=== PATIENT | female | born 1970 | race American Indian/Alaskan Native ===

== ENCOUNTER 2017-04-23 06:17 | Day surgery (SDC) | payer OTHER ==
--- NOTE | 2017-04-23 06:53 | CP.SDSHP ---
Same Day Surgery H & P - History Proposed Procedure: Right juan osteotomy of 2nd metatarsal, hammertoe correction of 3rd and 4th digits, rachelle osteotomy of hallux Pre-Op Diagnosis: right foot bunion and hammertoe deformity - Allergies Allergies: Allergies No Known Allergies Allergy (Verified 12/30/12 19:24) - {Optional Preform as Required} Integument: WNL - Impression Impression: Pt was seen and examined in [facility]. Pt NPO status was confirmed. All Pre-op testing and clearance was in the chart. Pt has exhausted all conservative treatment at this time and is opting for surgical intervention. Pt was explained procedure and post-operative course. All pt's questions were answered to satisfaction. No guarantees were made. Pt understands all risks, benefits and complications of procedure. Pt will follow-up with Dr. Hernandez Short Stay Discharge - Short Stay Discharge Admitting Diagnosis/Reason for Visit: M20.40 Disposition: HOME/ ROUTINE Referrals: Hiren Mcintyre MD [Primary Care Provider] - Follow-up: please follow up with Dr. Hernandez in [facility] podiatry clinic on 04/28/17 Instructions: Cephalexin (By mouth), Oxycodone/Acetaminophen (By mouth), Ice Pack Application (GEN) Additional Instructions (Diet, Activity): Patient in good/stable condition for discharge home. Pt to resume medications per medical reconciliation. Resume regular diet. Please keep dressing clean, dry, & intact to surgical site, use plastic bag over bandage for showering, wear post op shoe at all times when ambulating, call clinic if you see signs of infection (redness, swelling, malodor), please make an appointment to see clinic within 1 week for post-op check. Progress Note/Discharge Note with Instructions: If you need to speak to a nurse in our clinic please call [phone] and someone will answer the phone Wednesday from 9AM 5PM. Please leave a message at all other times. If you need to fax our clinic a document, our fax number is: [phone]. For all after-hour concerns: The on-call pager number is [phone]. The pager is held by a podiatry resident 14/06. You can use this to contact the resident physicians if your have any serious concerns either before or after your surgery. Examples of serious after-hour concerns are foul smelling odor with purulent drainage, completely saturated with blood dressings , tight cast that you cannot fit two fingers into, and individual ascending red streaks up the leg. Please keep in mind that prescriptions cannot be signed nor called into the pharmacy by residents of the [facility]. As the patient, it is your job to schedule a post-operative appointment at our clinic. The appointment scheduling phone number is: [phone]. For more information about our program please go to: [email or web address]
--- NOTE | 2017-04-23 06:56 | CP.PCM.PN ---
Subjective - Date & Time of Evaluation Date of Evaluation: 04/23/17 Time of Evaluation: 06:54 - Subjective Subjective: 47 y/o female seen at bedside in [facility] for proposed procedure of right foot bunion and hammertoe correction. Patient appears in NAD and AAOx3. She states that she has had previous surgery on her right foot in the past but the deformity returned. Patient states that she has not eaten or drank anything since last night at 9pm. Patient denies any acute events overnight. She denies n /f/v/c/d/sob. pshx: C section, R foot sx pmhx: HTN SH: social drinker, 6 cig a day x 15 years all: NKDA Objective - Vital Signs/Intake and Output Vital Signs (last 24 hours): Temp Pulse Resp BP Pulse Ox 98.1 F 78 18 137/76 100 04/23/17 06:51 04/23/17 06:51 04/23/17 06:51 04/23/17 06:51 04/23/17 06:51 - Constitutional Appears: Well, Non-toxic, No Acute Distress - Extremities Exam Additional comments: right foot focused: Vasc: DP/PT 2/4, TG wnl, CFT < 3 sec to all digits neuro: grossly intact derm: no edema, no erythema, hyperkeratotic lesion present sub met2,3, no interdigital maceration, no acute clinical signs of infection ortho: digital contractures of 2,3,4, bunion deformity, limited 1st MPJ ROM - Neurological Exam Neurological Exam: Alert, Awake, Oriented x3 - Psychiatric Exam Psychiatric exam: Normal Affect, Normal Mood Assessment and Plan - Assessment and Plan (Free Text) Assessment: 47 y/o female seen in [facility] for pre operative evaluation for right foot bunion and hammertoe correction with Dr. Hernandez Plan: Pt was seen and examined in [facility] Pt NPO status was confirmed All Pre-op testing and clearance was in the chart Pt has exhausted all conservative treatment at this time and is opting for surgical intervention Pt was explained procedure and post-operative course All pt's questions were answered to satisfaction No guarantees were made Pt understands all risks, benefits and complications of procedure Pt will follow-up with Dr. Hernandez
[2017-04-23] MEDS ORDERED: Bupivacaine 0.5% Inj(30mL) IJ ONE (06:59)
[2017-04-23] MEDS ORDERED: Lidocaine 1% Inj (20ml) IJ ONE ×2 (06:59→08:10)
[2017-04-23] MEDS ORDERED: ceFAZolin 1 GM in Sodium Chloride 0.9% 100 ML IVPB ONE (06:59)
[2017-04-23] MEDS ORDERED: Sodium Chloride 0.9% 500 ML IV SCH (07:00)
[2017-04-23 07:02] VITALS: BMI 25.8
[2017-04-23] MEDS ORDERED: Propofol 10 mg/ml Inj (20 ML) ONE ×5 (07:10→09:34)
[2017-04-23] MEDS ORDERED: Midazolam 2 MG/2 ML VIAL ONE (07:11)
[2017-04-23] MEDS ORDERED: Lactated Ringer's 1,000 ML IV ONE (07:30)
[2017-04-23] MEDS ORDERED: Bupivacaine 0.5% Inj(30mL) ONE (07:35)
[2017-04-23] MEDS ORDERED: Lidocaine 1% Inj (20ml) ONE (07:35)
[2017-04-23] MEDS ORDERED: Dexamethasone 4 mg/1 ml ONE (07:35)
[2017-04-23] MEDS ORDERED: ePHEDrine 50 mg/ml Inj ONE (07:44)
[2017-04-23] MEDS ORDERED: Bupivacaine 0.5% 50 ML IJ ONE (08:10)
--- NOTE | 2017-04-23 10:22 | PCM.SURG1 ---
Surgeon's Initial Post Op Note - Surgeon's Notes Surgeon: Dr. Hernandez [employer]: Dr. Deras PGY-1; Dr. Sosa PGY-3 Type of Anesthesia: IV Sedation Anesthesia Administered By: Dr. Hidalgo Pre-Operative Diagnosis: painful hallux abductus interphalangeus, metatarsalgia , hammer toe deformity 2nd and 3rd digit all right foot Operative Findings: see operative report Post-Operative Diagnosis: same Operation Performed: hallux oseotomy with screw fixation, osteotomy of 2nd metatarsal, PIPJ arthroplasty digits 2 and 3 all right foot Specimen/Specimens Removed: none Estimated Blood Loss: EBL {In ML}: 1 Blood Products Given: N/A Drains Used: No Drains Post-Op Condition: Good Date of Surgery/Procedure: 04/23/17 Time of Surgery/Procedure: 08:15
[2017-04-23] MEDS ORDERED: Oxycodone/Acetaminophen 5/325 mg Tab PO PRN ×2 (10:23)
[2017-04-23] MEDS: HYDROmorphone 0.5 mg/0.5 ml ISec IVP PRN ×3 (10:54→11:05)
[2017-04-23] MEDS: Lactated Ringer's 1,000 ML IV SCH ×2 (11:02→11:45)
[2017-04-23 12:02] VITALS: RESP 18
[2017-04-23] MEDS ORDERED: Oxycodone/Acetaminophen 5/325 mg Tab PO ONE (12:10)
[2017-04-23 12:57] VITALS: O2SAT 100
--- NOTE | 2017-04-23 13:10 | RAD ---
PROCEDURE: Right Foot Radiographs. HISTORY: s/p right foot surgery COMPARISON: 02/26/2017 FINDINGS: BONES: Status post osteotomy distal aspect 2nd and 3rd proximal phalanges. Osteotomy 2nd metatarsal head. Osteotomy mid 1st proximal phalanx. Two screws traverse the metatarsal head. Pins traverse the 2nd and 3rd digits. Screw traverses the 1st proximal phalangeal osteotomy site. JOINTS: Normal. SOFT TISSUES: Normal. OTHER FINDINGS: None. IMPRESSION: Multiple osteotomies with surgical hardware as above.
[2017-04-23 14:15] VITALS: BP 135/69; PULSE 66; TEMP 98.1
--- NOTE | 2017-04-24 20:05 | OP ---
PROCEDURE DATE: 04/23/2017 SURGEON: Christiano Hernandez DPM. MANAGER HIGHWAY: Felisha Franco DPM, PGY-1, Dr. Sosa, PGY-3. STAFFING RN: Dr. Hidalgo. ANESTHESIA: IV sedation plus local. PREOPERATIVE DIAGNOSIS: Painful right hallux abductus interphalangeus, metatarsalgia, painful hammer toe deformities 2nd and 3rd digit, right foot. POSTOPERATIVE DIAGNOSIS: Painful right hallux abductus interphalangeus, metatarsalgia, painful hamme rtoe deformities 2nd and 3rd digit, right foot. PROCEDURE PERFORMED: 1. Proximal phalanx hallux osteotomy, right foot. 2. Daniel osteotomy, second metatarsal, right foot. 3. Proximal interphalangeal joint arthroplasty, second digit, right foot. 4. Proximal interphalangeal joint arthroplasty, third digit, right foot. INDICATIONS: The patient is a 47-year-old female with the above diagnoses. The patient has exhauste d all conservative treatment at this time and now requests surgical intervention. The patient signed the consent after careful explanation of risks, benefits, complications and alternatives for surgica l procedures. No guarantees were given nor implied. N.p.o. status was confirmed prior to taking pat ient to the operating room. PREPARATION: The patient was brought into the operating room and placed on the operating table in th e supine position. A timeout was performed for identification of correct patient and procedure. A w ell-padded pneumatic ankle tourniquet was then placed to the patient's right ankle in a supramalleola r position. After induction of IV sedation, the patient received a total mixture of 20 mL of 0.5% Ma rcaine plain and 1% lidocaine plain in local block fashion to the right foot. Once local anesthesia was achieved, the right foot was then prepped and draped. Pneumatic ankle tourniquet was then inflat ed to 250 mmHg and the procedure began. PROCEDURE: 1. Proximal phalanx hallux osteotomy, right foot. Attention was then directed to the dorsal medial aspect of the right hallux where a #15 blade was used to make a 4 cm linear incision. The incision w as then extended down through the subcuticular and subcutaneous tissues, the capsular and periosteal layers, which were then reflected medially and laterally to expose the proximal phalanx and operative site. Care was taken to avoid all vital neurovascular structures during the dissection. Next, util izing an oscillating bone saw, a distal cut was made (parallel to the hallux IPJ) from medial and lat eral. Next, a proximal cut was made (parallel to the base of the proximal phalanx) from medial to la teral. A small wedge of bone was then freed from these 2 cuts which was then resected and passed fro m the operative field. Following standard AO principles and techniques, a 2.0 x 18 mm Synthes cortic al screw was then introduced across the osteotomy site from proximal medial to distal lateral with ex cellent compression noted. Next, utilizing standard AO technique, a hole was drilled proximal and a second hole was drilled distal to the osteotomy site on the dorsal surface of the proximal phalanx of the hallux. Next, utilizing a 28-gauge monofilament wire, an intraosseous loop was created between the 2 holes and tightened with a hemostat. Excellent compression was then noted to the osteotomy sit e. The wound was then flushed with copious amounts of sterile normal saline. The periosteal and cap sular structures were then reapproximated and coapted using 3-0 Vicryl. The subcuticular layer was t hen reapproximated using #2-0 Vicryl in a running suture technique. The skin edges were then reappro ximated using 4-0 Monocryl in running suture technique. 2. Daniel osteotomy, second metatarsal, right foot. Attention was then drawn to the second metatarso phalangeal joint. A lazy S incision was created just lateral to the second metatarsophalangeal joint . This was done to avoid postoperative contracture overlying the second metatarsophalangeal joint an d minimal scar formation clinically. The incision was then carried down to deeper plane, paying care ful attention to all neurovascular structures that were retracted, ligated and bovied as necessary. The incision was then deepened down to the level of the long extensor tendon. The long extensor tend on was then identified and retracted medially. Attention was then drawn to the capsular and perioste al tissues. A sharp periosteal and capsular incision was created being careful not to score the dee cular cartilage at the second metatarsal head. The periosteal tissue was sharply reflected from this area to expose the head and neck of the second metatarsophalangeal joint. At this time, with the us e of a sagittal saw, a Daniel-type osteotomy was created at the second metatarsal starting from the mos t proximal portion of the articular cartilage, the dorsal aspect of the second metatarsal and an obli que cut staying parallel to the weightbearing surface was created through and through. The capital f ragment was then transposed proximally. It was palpated. It was noted to be consistent with normal parabola. It was temporarily fixated with two 0.045-inch K-wires. Then, using standard AO technique , the osteotomy was permanently fixated using two 2.0 mm x 14 mm cortical screw. The osteotomy was n oted to be rectus and the parabola restored. The long extensor tendon was then lengthened in a V-typ e manner which is consistent with this type of procedure to avoid postoperative contracture in this r egion and to avoid a floating second metatarsal or lack of purchase of the second toe. The wound was flushed with copious amounts of sterile normal saline. The periosteal and capsular layers were repa ired with 3-0 Vicryl sutures. The subcuticular layer repaired with 2-0 Vicryl and the skin was then reapproximated using #4-0 Monocryl in a running suture technique. 3. PIPJ arthroplasty, second digit, right foot. Attention was then directed to the second digit whe re a 2 cm linear incision was made over the dorsum of the PIPJ. Sharp dissection was carried down to the deep tissues being careful to identify and retract all vital neurovascular structures. All blee ders were ligated and cauterized as needed. At this time, a transverse tenotomy and capsulotomy were performed to the proximal interphalangeal joint and the head of the proximal phalanx was then freed of its capsular and ligamentous attachments. Next, utilizing the oscillating bone saw, the head of t he proximal phalanx was resected and passed from the operative site. Next a 0.045 inch K-wire was t hen driven from the base of the middle phalanx exiting the distal aspect of the second digit. The K- wire was then retrograded proximally into the remaining aspect of the proximal phalanx. Correction o f the deformity was then assessed at this time and noted to be excellent. The wound was then flushed with copious sterile saline mixed subcutaneous layers repaired with 3-0 Vicryl and skin was reapprox imated with #4-0 nylon suture. 4. PIPJ arthroplasty, third digit, right foot. Next, the attention was then directed to the third d igit where a 2 cm linear incision was made over the dorsum of the PIPJ. Sharp dissection was then ca rried down to the deep tissues being careful to identify and retract all vital neurovascular structur es. All bleeders were then ligated and cauterized as needed. At this time, a transverse tenotomy an d capsulotomy were performed to the proximal interphalangeal joint and the head of the proximal phala nx was then freed of its capsular and ligamentous attachments. Next, utilizing the oscillating bone saw, the head of the proximal phalanx was then resected and passed from the operative site. Next, a 0.045 inch K-wire was driven from the base of the middle phalanx exiting the distal aspect of the sec ond digit. The K-wire was then retrograded proximally into the remaining aspect of the proximal phal anx. Correction of the deformity was then assessed at this time and noted to be excellent. The woun d was flushed with copious sterile saline. The subcutaneous layer was repaired with 3-0 Vicryl and s kin reapproximated with #4-0 nylon suture using a simple suture technique. An additional 10 mL of 0.5% Marcaine plain plus 1 mL (4 mg) of dexamethasone was then injected into t he foot at the incision site. The foot was then cleansed with sterile saline and dried thoroughly. Steri-Strips were then applied to the incision of the hallux and over the second metatarsal incision. The foot was then dressed with a wet to dry dressings consisting of 4 x 4 gauze, then dry 4 x 4 gau ze, Kerlix, and Tensoplast. POSTOPERATIVE CONDITION: The patient tolerated the anesthesia and procedure well and was escorted to the recovery room with vital signs stable and neurovascular status intact to the right foot. The pa tient is to be weightbearing as tolerated to the right heel with a surgical shoe. She is to follow u p with Dr. Hernandez in the clinic next week. FELISHA FRANCO DPM Christiano Hernandez DPM cc: [id number] TT: 04/24/2017 20:04:33 jn
== END 2017-04-23 14:26 | disposition home or self-care (01) ==
LOC: H.OPSURG 06:17
PROVIDERS: ATTEND Podiatrist
DX: M20.40 Other hammer toe(s) (acquired), unspecified foot (principal); I10 Essential (primary) hypertension